=== PATIENT | female | born 1950 ===

== ENCOUNTER 2017-07-18 14:49 | Emergency (ER) | payer MEDICARE, OTHER ==
[2017-07-18 15:09] VITALS: TEMP 98.4
--- NOTE | 2017-07-18 15:58 | ED PDOC ---
Arrival/HPI - History of Present Illness Time/Duration: 1-3 hours Symptom Onset: Sudden Symptom Course: Unchanged Context: Home - General Time Seen by Provider: 07/18/17 14:52 - History of Present Illness Narrative History of Present Illness (Text): 07/18/17 15:54 67 year old female with past medical history of HTN, DM, HLD and hypothyroid presents for mechanical fall that she experience 2 hours prior to coming to ED. Patient states that she was walking up the stairs at home when she tripped. patient went to urgent care and was sent to hospital for CT of head. Patient denies LOC. Patient is not on any blood thinners. Patient now has a slight headache located in frontal region. Denies having any N/V. (Karim,Georgiana) Past Medical History - Provider Review Nursing Documentation Reviewed: Yes - Travel History Have you recently traveled outside [place] w/in the past 3 mons?: No - Infectious Disease Hx of Infectious Diseases: None - Cardiac Hx Hypertension: Yes - Endocrine/Metabolic Hx Diabetes Mellitus Type 2: Yes Hx Hypothyroidism: Yes - Psychiatric Hx Substance Use: No - Surgical History Hx Section: Yes (x3) Hx Hysterectomy: Yes Family/Social History - Physician Review Nursing Documentation Reviewed: Yes Family/Social History: Unknown Family HX Smoking Status: Never Smoked Hx Alcohol Use: No Hx Substance Use: No Allergies/Home Meds Allergies/Adverse Reactions: Allergies No Known Allergies Allergy (Verified 07/18/17 15:09) Home Medications: Home Meds Medication Instructions Recorded Confirmed Allopurinol [Zyloprim] 100 mg PO DAILY 07/18/17 07/18/17 Amlodipine Besylate/Benazepril 1 cap PO DAILY 07/18/17 07/18/17 [Amlodipine-Benazepril 5-20 mg] Gabapentin [Neurontin] 300 mg PO BID 07/18/17 07/18/17 Levothyroxine Sodium [Levoxyl] 0.15 mg PO DAILY 07/18/17 07/18/17 Metformin HCl [Glucophage] 1,000 mg PO BID 07/18/17 07/18/17 Metoprolol Succinate [Metoprolol 100 mg PO DAILY 07/18/17 07/18/17 Succinate Xl] Omeprazole 20 mg PO DAILY 07/18/17 07/18/17 Simvastatin [Zocor] 20 mg PO DAILY 07/18/17 07/18/17 Review of Systems - Review of Systems Constitutional: Normal. absent: Fatigue, Fevers Eyes: Normal. absent: Vision Changes, Eye Pain ENT: Normal. absent: Sore Throat, Rhinorrhea, Sinus Congestion Respiratory: Normal. absent: SOB, Cough, Sputum, Wheezing Cardiovascular: Normal. absent: Chest Pain, Palpitations, Edema Gastrointestinal: Normal. absent: Abdominal Pain, Constipation, Diarrhea, Nausea, Vomiting Genitourinary Female: Normal. absent: Dysuria, Frequency Musculoskeletal: Normal. absent: Arthralgias, Back Pain, Neck Pain Skin: Laceration (forehead). absent: Rash Neurological: Headache. absent: Dizziness, Focal Weakness, Gait Changes, Speech Changes, Facial Droop Endocrine: Normal. absent: Diaphoresis, Polyuria Hemo/Lymphatic: Normal. absent: Adenopathy, Easy Bleeding Psychiatric: Normal. absent: Anxiety, Depression Physical Exam Vital Signs Reviewed: Yes Temperature: Afebrile Blood Pressure: Normal Pulse: Regular Respiratory Rate: Normal Appearance: Positive for: Well-Appearing Pain Distress: Mild Mental Status: Positive for: Alert and Oriented X 3 - Systems Exam Head: Present: Laceration (forehead ). No: Tenderness, Contusion, Swelling Pupils: Present: PERRL Extroacular Muscles: Present: EOMI Conjunctiva: Present: Normal Mouth: Present: Moist Mucous Membranes Neck: Present: Normal Range of Motion. No: MIDLINE TENDERNESS Respiratory/Chest: Present: Clear to Auscultation, Good Air Exchange. No: Respiratory Distress, Accessory Muscle Use, Wheezes, Rales, Rhonchi Cardiovascular: Present: Regular Rate and Rhythm, Normal S1, S2. No: Murmurs, Rub, Gallop, Muffled Abdomen: Present: Normal Bowel Sounds. No: Tenderness, Distention, Peritoneal Signs, Rebound, Guarding Lower Extremity: No: Edema, CALF TENDERNESS Neurological: Present: GCS=15, CN II-XII Intact, Speech Normal, Motor Func Grossly Intact, Normal Sensory Function Skin: Present: Warm, Dry, Laceration Psychiatric: Present: Alert, Oriented x 3, Normal Insight, Normal Concentration Medical Decision Making - RAD Interpretation Cleaning Machine Operator: Radiologist ED Course and Treatment: 07/18/17 15:58 67 year old female presents after having mechanical fall with laceration to forehead. Patient's laceration is sutured at bedside. Patient states that she does not want to wait for plastic surgeon consult to have laceration closed. Will get CT of head without contrast Patient will be given Tylenol 650 for pain (Georgiana Kam) 07/18/17 20:52 pt seen with resident.macrina beasley with findings. s/p mechanical fall. lac closed by resident (initally requested plastics, now ok with er), head ct neg. neuro intact. advise outpt f/u (Wan Saavedra) - RAD Interpretation Narrative RAD Interpretations (Text): 07/18/17 18:[address] head (Georgiana Kam) Radiology Orders: 07/18/17 15:16 HEAD W/O CONTRAST [CT] Stat - Medication Orders Current Medication Orders: Discontinued Medications Acetaminophen (Tylenol 325mg Tab) 650 mg PO STAT STA Stop: 07/18/17 15:17 Last Admin: 07/18/17 15:50 Dose: 650 mg Tetanus/Reduced Diphtheria/Acell Pertussis (Boostrix Vaccine Inj) 0.5 ml IM .ONCE ONE Stop: 07/18/17 16:22 Last Admin: 07/18/17 16:57 Dose: 0.5 ml Procedures - Laceration/Wound Repair Face Wound Length (cm): 2.5 Wound's Depth, Shape: superficial Wound Explored: no foreign body removed Irrigated w/ Saline (ccs): 20 Anesthesia: Lidocaine w/ Epi Volume Anesthetic (ccs): 10 Wound Debrided: minimal Wound Repaired With: Sutures Suture Size/Type: 6:0 Number of Sutures: 4 Layer Closure?: No Wound Complexity: Simple Sterile Dressing Applied?: Yes Disposition/Present on Arrival - Present on Arrival Any Indicators Present on Arrival: No History of DVT/PE: No History of Uncontrolled Diabetes: No Urinary Catheter: No History of Decub. Ulcer: No History Surgical Site Infection Following: None - Disposition Have Diagnosis and Disposition been Completed?: Yes Disposition Time: 18:06 Patient Plan: Discharge - Disposition Diagnosis: Head trauma, Laceration Disposition: HOME/ ROUTINE Condition: STABLE Discharge Instructions (ExitCare): Laceration (ED), Head Injury (ED) Additional Instructions: Mili Delaney, thank you for letting us take care of you today. Your provider was Dr. Georgiana Kam. You were treated for forehead trauma. The emergency medical care you received today was directed at your acute symptoms. If you were prescribed any medication, please fill it and take as directed. It may take several days for your symptoms to resolve. Return to the Emergency Department if your symptoms worsen, do not improve, or if you have any other problems. Please contact your doctor or call one of the physicians/clinics you have been referred to that are listed on the Patient Visit Information form that is included in your discharge packet. Bring any paperwork you were given at discharge with you along with any medications you are taking to your follow up visit. Our treatment cannot replace ongoing medical care by a primary care provider (PCP) outside of the emergency department. Thank you for allowing the [facility] team to be part of your care today. If you had an X-Ray or CT scan: A Radiologist will review the ED reading if any change in treatment is needed we will contact you. If you had a blood, urine, or wound culture: It will take several days for the results, if any change in treatment is needed we will contact you. If you had an STI test: It will take 48 hours for the results. Please call after 1 week if you have not heard back. Please return to ED or go to PMD office to have stitches removed in 7-10 days Referrals: Sophia Martinez MD [Primary Care Provider] - Follow up with primary Forms: [employer] (Palestinian)
[2017-07-18] MEDS ORDERED: TDAP Vaccine 0.5 mL Syr IM ONE (16:21)
--- NOTE | 2017-07-18 16:54 | CT ---
PROCEDURE: CT HEAD WITHOUT CONTRAST. HISTORY: trauma COMPARISON: None available. TECHNIQUE: Axial computed tomography images were obtained through the head/brain without intravenous contrast. Radiation dose: Total exam DLP = 774 mGy-cm. This CT exam was performed using one or more of the following dose reduction techniques: Automated exposure control, adjustment of the mA and/or kV according to patient size, and/or use of iterative reconstruction technique. FINDINGS: HEMORRHAGE: No intracranial hemorrhage. BRAIN: No mass effect or edema. No atrophy or chronic microvascular ischemic changes. VENTRICLES: Unremarkable. No hydrocephalus. CALVARIUM: Unremarkable. PARANASAL SINUSES: Unremarkable as visualized. No significant inflammatory changes. MASTOID AIR CELLS: Unremarkable as visualized. No inflammatory changes. OTHER FINDINGS: None. IMPRESSION: No acute findings
[2017-07-18 17:16] VITALS: BP 120/72; PULSE 61; RESP 16; O2SAT 100
== END 2017-07-18 17:02 | disposition home or self-care (01) ==
LOC: MERGE 14:49 → ED 14:49
DX: S01.81XA Laceration without foreign body of other part of head, initial encounter (principal); W10.8XXA Fall (on) (from) other stairs and steps, initial encounter; Y93.89 Activity, other specified; Y92.008 Other place in unspecified non-institutional (private) residence as the place of occurrence of the external cause; Z23 Encounter for immunization

== ENCOUNTER 2017-07-31 14:00 | Emergency (ER) | payer MEDICARE, OTHER ==
[2017-07-31 14:35] VITALS: BP 110/71; PULSE 59; RESP 16; TEMP 98.3; O2SAT 98
--- NOTE | 2017-07-31 14:50 | ED PDOC ---
Arrival/HPI - General Chief Complaint: Suture/Staple Removal Time Seen by Provider: 07/31/17 14:48 Historian: Patient - History of Present Illness Narrative History of Present Illness (Text): 07/31/17 17:15 Patient came to ED for suture removal. Wound was closed on 07/18/17. Patient has no complains at present time. Past Medical History - Provider Review Nursing Documentation Reviewed: Yes - Infectious Disease Hx of Infectious Diseases: None - Cardiac Hx Hypertension: Yes - Endocrine/Metabolic Hx Diabetes Mellitus Type 2: Yes Hx Hypothyroidism: Yes - Psychiatric Hx Psychophysiologic Disorder: No Hx Substance Use: No - Surgical History Hx Hysterectomy: Yes (15 yrs ago) - Suicidal Assessment Feels Threatened In Home Enviroment: No Family/Social History - Physician Review Nursing Documentation Reviewed: Yes Family/Social History: Unknown Family HX Smoking Status: Never Smoked Hx Alcohol Use: No Hx Substance Use: No Allergies/Home Meds Allergies/Adverse Reactions: Allergies No Known Allergies Allergy (Unverified 07/31/17 14:30) Home Medications: Home Meds Medication Instructions Recorded Confirmed Allopurinol 1 tab PO BID 12/07/13 12/07/13 Levothyroxine [Synthroid] 1 tab PO DAILY 12/07/13 12/07/13 Lisinopril 1 tab PO DAILY 12/07/13 12/07/13 Metformin ER [Glucophage XR] 1 tab PO BID 12/07/13 12/07/13 Metoprolol Succinate [Toprol XL] 1 tab PO 12/07/13 12/07/13 Potassium Chl 20 mEq in D5-1/2NS 12/07/13 12/07/13 Simvastatin 1 tab PO DAILY 12/07/13 12/07/13 Allopurinol [Zyloprim] 100 mg PO DAILY 07/18/17 07/18/17 Amlodipine Besylate/Benazepril 1 cap PO DAILY 07/18/17 07/18/17 [Amlodipine-Benazepril 5-20 mg] Gabapentin [Neurontin] 300 mg PO BID 07/18/17 07/18/17 Levothyroxine Sodium [Levoxyl] 0.15 mg PO DAILY 07/18/17 07/18/17 Metformin HCl [Glucophage] 1,000 mg PO BID 07/18/17 07/18/17 Metoprolol Succinate [Metoprolol 100 mg PO DAILY 07/18/17 07/18/17 Succinate Xl] Omeprazole 20 mg PO DAILY 07/18/17 07/18/17 Simvastatin [Zocor] 20 mg PO DAILY 07/18/17 07/18/17 Review of Systems - Physician Review All systems were reviewed & negative as marked: Yes - Review of Systems Skin: Other (suture removal) Physical Exam Vital Signs Reviewed: Yes Vital Signs Temp Pulse Resp BP Pulse Ox 07/31/17 14:31 98.3 F 59 L 16 110/71 98 Mental Status: Positive for: Alert and Oriented X 3 - Systems Exam Head: Present: Atraumatic, Other (healing laceration of the right side of the forehead, no signs of infection. 4 stitches are intact.). No: Tenderness Medical Decision Making ED Course and Treatment: 07/31/17 17:18 4 stitches were removed without difficulties. Bacitracin ointment was applied. Disposition/Present on Arrival - Present on Arrival Any Indicators Present on Arrival: No History of DVT/PE: No History of Uncontrolled Diabetes: No Urinary Catheter: No History of Decub. Ulcer: No History Surgical Site Infection Following: None - Disposition Have Diagnosis and Disposition been Completed?: Yes Diagnosis: Visit for suture removal Disposition: HOME/ ROUTINE Disposition Time: 14:49 Patient Plan: Discharge Condition: STABLE Discharge Instructions (ExitCare): Stitches Removal (ED) Additional Instructions: Follow up with your PMD as needed. Return to Ed if feel worse. Referrals: Sophia Martinez MD [Primary Care Provider] - Follow up with primary Forms: [employer] (Azeri)
== END 2017-07-31 15:10 | disposition home or self-care (01) ==
LOC: ED 14:00
DX: Z48.02 Encounter for removal of sutures (principal)